=== PATIENT | male | born 1980 | race Caucasian/White ===

== ENCOUNTER → 2020-11-29 | Outpatient (CLI) | payer BC ==
[~2020-11-29] MED LIST: TOPROL XL100 MG PO; ZESTRIL 10MG10 MG PO
== END ==
LOC: COL.RAD 07:30
DX: E04.1 Nontoxic single thyroid nodule (principal)

== ENCOUNTER 2021-01-14 21:18 | Emergency (ER) | payer BC ==
[~2021-01-14] VITALS: Ht 182.9 cm; Wt 106.8 kg
[2021-01-14 21:25] VITALS: TEMP 97.2
[2021-01-14] MEDS ORDERED: TOPROL XL100 MG PO (23:04)
[2021-01-14 23:07] LABS: BASO % 0.5 % (0.0-2.0); EOS # 0.3 (0.0-0.7); EOS % 3.3 % (0-4.0); GRAN # 5.1 (1.4-6.5); HEMOGLOBIN 16.2 g/dl (13.5-18.0); LYMPH # 1.6 (1.2-3.4); LYMPH % 20.1 % (20.0-51.0); MEAN CELL VOLUME 92 fl (80.0-100.0); MEAN CORPUSCULAR HEMOGLOBIN 31 pg (27.0-31.0); MEAN CORPUSCULAR HGB CONC 34 g/dl (33.0-37.0); MEAN PLATELET VOLUME 10.7 fl (7.4-10.4); MONO # 0.9 (0.1-0.6); MONO % 10.8 % (1.7-9.3); PLATELET COUNT 193 K/mm3 (130-400); RED BLOOD COUNT 5.23 M/mm3 (4.20-5.60); REDCELL DISTRIBUTION WIDTH-CV 12.2 % (11.5-14.5)
[2021-01-14 23:20] LABS: ALANINE AMINOTRANSFERASE 151 U/L (4-49); ALBUMIN 4.9 gm/dL (3.5-5.0); ALKALINE PHOSPHATASE 47 U/L (50-136); ANION GAP 8 mmol/L (7-16); AST,SGOT 111 U/L (15-37); BILIRUBIN,TOTAL 0.8 mg/dL (0.0-1.0); BLOOD UREA NITROGEN 10 mg/dL (9-20); CALCIUM 9.4 mg/dL (8.4-10.2); CARBON DIOXIDE 23 mmol/L (22-30); CHLORIDE 110 mmol/L (98-107); CREATININE, serum 0.75 (0.66-1.25); GLUCOSE 117 mg/dL (74-106); POTASSIUM 3.9 mmol/L (3.4-5.0); SODIUM 140 mmol/L (137-145); TOTAL PROTEIN 8.6 gm/dL (6.4-8.2)
[2021-01-14 23:23] LABS: C-REACTIVE PROTEIN < 0.5 mg/dL (0.0-0.9)
[2021-01-14 23:35] LABS: TROPONIN-I < 0.012 ng/mL (0.000-0.035)
[2021-01-15] MEDS ORDERED: ZESTRIL 10MG10 MG PO ×2 (01:04→13:17)
[2021-01-15 01:19] VITALS: BP 159/93; PULSE 87
== END 2021-01-15 01:19 | disposition home or self-care (01) ==
LOC: COL.ER 21:18
PROVIDERS: Nurse Practitioner
DX: R07.89 Other chest pain (principal); I10 Essential (primary) hypertension; Z79.899 Other long term (current) drug therapy
CPT/HCPCS: J0360; J2060; J7030

== ENCOUNTER → 2021-01-15 | Outpatient (CLI) | payer BC ==
[~2021-01-15] VITALS: Ht 182.9 cm; Wt 108.7 kg
[2021-01-15 14:00] VITALS: BP 177/96; PULSE 87
== END ==
LOC: COL.RAD 12:30
DX: E04.1 Nontoxic single thyroid nodule (principal)
CPT/HCPCS: 32140